=== PATIENT | male | born 1980 | race Caucasian/White ===

== ENCOUNTER 2019-11-22 00:48 | Emergency (ER) | payer OTHER ==
[~2019-11-22] VITALS: Ht 172.7 cm; Wt 91.2 kg
[~2019-11-22 00:48] MED LIST: CYCLOBENZAPRINE10 MG PO; HYDRALAZINE HCL25 MG PO; PERCOCET 5-3251 EACH PO
--- OUTSIDE RECORDS SUMMARY | 2019-11-22 00:50 | XMS ---
PreManage Notification: PAT RIVERA Security Value Engineer Events No recent Security Events currently on file CRITERIA MET - 6 ED Visits in 6 Months - [facility] - 3 Facilities in 90 Days - [facility] - 2 Visits in [address] [place] Student in an Organized Health Care Brian GUAJARDO Education/Training Program PHONE: [phone] ROSARIO ROSS Nurse Practitioner: Adult Health Current PHONE: [phone] Primary Care Primary Care Current PHONE: Unknown MICHAEL ABDI Primary Care Current PHONE: [phone] Care Guidelines exist for the following facilities: [facility] ( 12/03/2017 ) Care History Medical/Surgical 04/29/2016 [facility] MEDICAL - Body mass index 30+ - obesity / 308048133 / Confirmed, Foot pain, left / 261780352 / Confirmed, Anxiety / 79067470 / Confirmed, Acute anxiety / 62802744 / Confirmed, Knee pain, left / 10645969 / Confirmed, Low back pain with radiation / 056609809 / Confirmed, Medication withdrawal / 907530705 / Confirmed, Left arm pain / 254305088 / Confirmed, PTSD (post-traumatic stress disorder) / 14346754 / Confirmed. SURGICAL - Bilateral coblation tonsillectomy (4083757731), Tonsillectomy (374141069). E.D. VISIT COUNT (12 MO.) [address] [place] TOTAL 20 NOTE: Visits indicate total known visits. ED/UCC VISIT TRACKING (12 MO.) 11/22/2019 00:48 ADDIE [place]ias TYPE: Emergency COMPLAINT: - SOB 10/27/2019 12:25 [facility] [place] TYPE: Emergency DIAGNOSES: - Anxiety disorder, unspecified - Anxiety 10/06/2019 09:23 [facility] [place] TYPE: Emergency DIAGNOSES: - Chest Pain - Dizziness - ams - Adverse effect of unspecified drugs, medicaments and biologic 09/30/2019 12:10 [facility] TYPE: Urgent Care DIAGNOSES: - Panic disorder [episodic paroxysmal anxiety] - Anxiety 09/09/2019 13:09 [facility]. TYPE: Emergency DIAGNOSES: - complaining of - panic attack - panic disorder - anxiety 09/01/2019 12:36 [facility]. 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 - Encounter for other general examination - Pain in right hand 05/23/2019 22:59 [facility] [place] TYPE: Emergency DIAGNOSES: - Hand Injury - Right hand pain - Displaced fracture of neck of fifth metacarpal bone, right alberts 05/09/2019 18:56 [facility] [place] TYPE: Emergency 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: - 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 - Anxiety disorder, unspecified - Anxiety 05/08/2019 13:55 [facility] [place] TYPE: Emergency DIAGNOSES: - Finger Pain - Contusion of unspecified finger without damage to nail, initi - rt hand injury 05/07/2019 14:11 [facility] [place] TYPE: Emergency DIAGNOSES: - Shoulder Pain - Pain in left shoulder - shoulder inj 04/25/2019 09:38 [facility]: Emergency DIAGNOSES: - Arm pain - Strain of unspecified muscle, fascia and tendon at shoulder a 04/08/2019 23:29 [facility] TYPE: Emergency DIAGNOSES: - Anxiety disorder, unspecified - Major depressive disorder, single episode, unspecified - Mental Health Evaluation - Suicidal Thoughts - Anxiety - MIXING MACHINE TENDER 04/08/2019 15:01 [facility] TYPE: Emergency DIAGNOSES: - Right eye irritation - Eye Problem - Tinnitus - Dizziness 03/21/2019 08:45 [facility] TYPE: Emergency DIAGNOSES: - Other stimulant use, unsp with intoxication, unspecified - Overdose (Intentional) 03/17/2019 14:00 [facility] Urgent Care [place] TYPE: Urgent Care DIAGNOSES: - Diarrhea, unspecified - Helminthiasis, unspecified - Abdominal Pain 03/01/2019 19:35 [facility] [place] TYPE: Emergency DIAGNOSES: - MIXING MACHINE TENDER - Encounter for other general examination - Medical Problem (Minor) 02/25/2019 06:36 [facility] [place] TYPE: Emergency DIAGNOSES: - Major depressive disorder, single episode, unspecified - Self Mutilation - Other problems related to lifestyle - MIXING MACHINE TENDER 02/22/2019 13:45 [facility] [place] TYPE: Emergency DIAGNOSES: - Pain in right knee - knee pain - Effusion, right knee - Sprain of lateral collateral ligament of right knee, initial Plus 2 More Visits INPATIENT VISIT TRACKING (12 MO.) No inpatient visits to display in this time frame [id number]
--- NOTE | 2019-11-22 11:58 | EKG ---
[facility] [address] [facility] [place], [place] [address] Signed Normal sinus rhythm Normal ECG No previous ECGs available Confirmed by MICHOACANO PEREZ DO ([id number]) on 11/22/2019 11:58:17 AM Electronically Signed By: MICHOACANO PEREZ DO 11/22/19 1158 PATIENT NAME: PAT RIVERA JALIL Electrocardiogram DATE OF : 80 PHYSICIAN: MICHOACANO PEREZ DO REPORT #: [id number] REPORT IS CONFIDENTIAL AND NOT TO BE RELEASED WITHOUT AUTHORIZATION
== END 2019-11-22 02:30 | disposition home or self-care (01) ==
LOC: ED 00:48
DX: F15.10 Other stimulant abuse, uncomplicated (principal); R00.2 Palpitations; Z87.891 Personal history of nicotine dependence; Z88.0 Allergy status to penicillin
CPT/HCPCS: 93005; 93010; 99285-25

== ENCOUNTER 2019-12-14 17:11 | Emergency (ER) | payer OTHER ==
[~2019-12-14] VITALS: Ht 172.7 cm; Wt 91.2 kg
--- OUTSIDE RECORDS SUMMARY | 2019-12-14 17:14 | XMS ---
PreManage Notification: PAT RIVERA Security Tractor Expert Events No recent Security Events currently on file CRITERIA MET - 6 ED Visits in 6 Months - [facility] - 2 Visits in [address] [place] Student in an Organized Health Care Current GUAJARDO Education/Training Program PHONE: [phone] ROSARIO ROSS Nurse Practitioner: Adult Health Current PHONE: [phone] Care Guidelines exist for the following facilities: [facility] ( 12/03/2017 ) Care History Medical/Surgical 04/29/2016 [facility] MEDICAL - Body mass index 30+ - obesity / 962004579 / Confirmed, Foot pain, left / 046140872 / Confirmed, Anxiety / 33344975 / Confirmed, Acute anxiety / 78619128 / Confirmed, Knee pain, left / 74417048 / Confirmed, Low back pain with radiation / 474769525 / Confirmed, Medication withdrawal / 531812307 / Confirmed, Left arm pain / 162070767 / Confirmed, PTSD (post-traumatic stress disorder) / 89859071 / Confirmed. SURGICAL - Bilateral coblation tonsillectomy (4471323573), Tonsillectomy (473263904). Genet VISIT COUNT (12 MO.) 2 [facility] 17 [facility] 2 [facility] TOTAL 21 NOTE: Visits indicate total known visits. ED/UCC VISIT TRACKING (12 MO.) 12/14/2019 17:12 [place] TYPE: Emergency COMPLAINT: - MED REFILL 11/22/2019 00:48 [place] TYPE: Emergency COMPLAINT: - SOB DIAGNOSES: - Personal history of nicotine dependence - Palpitations - Other stimulant abuse, uncomplicated - Other stimulant abuse, uncomplicated - Allergy status to penicillin 10/27/2019 12[facility] DIAGNOSES: - Anxiety disorder, unspecified - Anxiety 10/06/2019 09:23 [facility] DIAGNOSES: - Chest Pain - Dizziness - ams - Adverse effect of unspecified drugs, medicaments and biologic 09/30/2019 12:10 [facility] [place] TYPE: Urgent Care DIAGNOSES: - Panic disorder [episodic paroxysmal anxiety] - Anxiety 09/09/2019 13:09 [facility] TYPE: Emergency DIAGNOSES: - complaining of - panic attack - panic disorder - anxiety 09/01/2019 12:36 [facility]. 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 - Encounter for other general examination - Pain in right hand 05/23/2019 22:59 [facility] [place] [facility]: Emergency DIAGNOSES: - Hand Injury - Right hand pain - Displaced fracture of neck of fifth metacarpal bone, right alberts 05/09/2019 18:56 [facility] [place] TYPE: Emergency 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 [place] TYPE: Emergency DIAGNOSES: - Shoulder Pain - Pain in left shoulder - shoulder inj 04/25/2019 09:38 [facility] [place] [facility]: Emergency DIAGNOSES: - Arm pain - Strain of unspecified muscle, fascia and tendon at shoulder a 04/08/2019 23:29 [facility] TYPE: Emergency DIAGNOSES: - Anxiety disorder, unspecified - Major depressive disorder, single episode, unspecified - Mental Health Evaluation - Suicidal Thoughts - Anxiety - ENGINEERING LECTURER 04/08/2019 15:01 [facility] Pat [place] TYPE: Emergency DIAGNOSES: - Right eye irritation - Eye Problem - Tinnitus - Dizziness 03/21/2019 08:45 [facility] [place] TYPE: Emergency DIAGNOSES: - Other stimulant use, unspecified with intoxication, unspecifi - Overdose (Intentional) 03/17/2019 14:00 [facility] [place] TYPE: Urgent Care DIAGNOSES: - Diarrhea, unspecified - Helminthiasis, unspecified - Abdominal Pain 03/01/2019 19:35 [facility] [place] TYPE: Emergency DIAGNOSES: - ENGINEERING LECTURER - Encounter for other general examination - Medical Problem (Minor) 02/25/2019 06:36 [facility] [place] TYPE: Emergency DIAGNOSES: - Major depressive disorder, single episode, unspecified - Self Mutilation - Other problems related to lifestyle - ENGINEERING LECTURER Plus 3 More Visits INPATIENT VISIT TRACKING (12 MO.) No inpatient visits to display in this time frame [id number]
[2019-12-14] MEDS ORDERED: SUBOXONE 4 MG-1 EACH SL (17:27)
[2019-12-14] MEDS ORDERED: LORAZEPAM1 MG PO (17:27)
== END 2019-12-14 17:41 | disposition home or self-care (01) ==
LOC: ED 17:11
DX: Z76.5 Malingerer [conscious simulation] (principal); Z87.891 Personal history of nicotine dependence; Z88.0 Allergy status to penicillin; Z88.5 Allergy status to narcotic agent; Z88.8 Allergy status to other drugs, medicaments and biological substances; Z79.899 Other long term (current) drug therapy
CPT/HCPCS: 99282

== ENCOUNTER 2020-09-18 21:00 | Emergency (ER) | payer OTHER ==
[~2020-09-18] VITALS: Ht 172.7 cm; Wt 86.2 kg
[~2020-09-18 21:00] MED LIST changes: +LORAZEPAM1 MG PO; +SUBOXONE 4 MG-1 EACH SL
--- OUTSIDE RECORDS SUMMARY | 2020-09-18 21:04 | XMS ---
PreManage Notification: PAT RIVERA Security Surveyor Helper Events No recent Security Events currently on file CRITERIA MET - 6 ED Visits in 6 Months - [facility] [address] [place] Student in an Organized Health Care Current GUAJARDO Education/Training Program PHONE: [phone] EVAN MONREAL Nurse Practitioner: Family Current PHONE: [phone] Care Guidelines exist for the following facilities: [facility] ( 12/03/2017 ) Care History Medical/Surgical 04/29/2016 [facility] MEDICAL - Body mass index 30+ - obesity / 965364579 / Confirmed, Foot pain, left / 340763235 / Confirmed, Anxiety / 94385270 / Confirmed, Acute anxiety / 51157136 / Confirmed, Knee pain, left / 54510281 / Confirmed, Low back pain with radiation / 204602303 / Confirmed, Medication withdrawal / 704938806 / Confirmed, Left arm pain / 019591559 / Confirmed, PTSD (post-traumatic stress disorder) / 41310926 / Confirmed. SURGICAL - Bilateral coblation tonsillectomy (6318066625), Tonsillectomy (345748023). EDana VISIT COUNT (12 MO.) [address] [place] [address] Pat ADDIE [place] TOTAL 15 NOTE: Visits indicate total known visits. ED/UCC VISIT TRACKING (12 MO.) 09/18/2020 21:01 [place] TYPE: Emergency COMPLAINT: - LOC, NECKPAIN UP THRU JAW, ARM PAIN 08/07/2020 12:13 [facility] [place] TYPE: Emergency DIAGNOSES: - Encounter for issue of repeat prescription - Medical Problem (Minor) - Malingerer [conscious simulation] - anxiety 07/24/2020 08:46 [facility] [place] TYPE: Emergency DIAGNOSES: - Chest Pain - Shoulder Pain - Nausea - Chest pain, unspecified - Sore Throat 07/21/2020 20:10 [facility] [place] TYPE: Emergency DIAGNOSES: - Anxiety disorder, unspecified - Opioid dependence with withdrawal - Medication refill - Other psychoactive substance abuse, uncomplicated 07/12/2020 11:14 [facility] [place] TYPE: Emergency DIAGNOSES: - Generalized anxiety disorder - anxiety, CP, lightheaded - Acute stress reaction 05/17/2020 13:56 [facility] [place] TYPE: Emergency DIAGNOSES: - Sedative, hypnotic or anxiolytic dependence with withdrawal, uncomplicated - med withdrawal - Suicidal Thoughts - Medical Problem (Minor) 01/24/2020 12:03 [facility] [place] TYPE: Emergency DIAGNOSES: - poss low potassium - Low Potassium - Other somatoform disorders 01/13/2020 20:41 [facility] [place] TYPE: Emergency DIAGNOSES: - Chest Pain - Anxiety disorder, unspecified 01/07/2020 21:34 [facility] [place] TYPE: Emergency DIAGNOSES: - Medication Refill - needs detox medication - Sedative, hypnotic or anxiolytic dependence, uncomplicated 12/30/2019 02:55 [facility] [place] TYPE: Emergency DIAGNOSES: - Anxiety disorder, unspecified - anxiety 12/14/2019 21:15 [facility] [place] TYPE: Emergency DIAGNOSES: - Medication Refill - Encounter for issue of repeat prescription - SEARCH 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 med refill 12/14/2019 17:12 ADDIE Tobias TYPE: Emergency COMPLAINT: - MED REFILL DIAGNOSES: - Personal history of nicotine dependence - Allergy status to penicillin - Malingerer [conscious simulation] - Allergy status to narcotic agent - Allergy status to other drugs, medicaments and biological substances - 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 11/22/2019 00:48 ADDIE [place] TYPE: Emergency COMPLAINT: - SOB DIAGNOSES: - Personal history of nicotine dependence - Palpitations - Other stimulant abuse, uncomplicated - Other stimulant abuse, uncomplicated - Allergy status to penicillin 10/27/2019 12:25 [facility] DIAGNOSES: - Anxiety disorder, unspecified - Anxiety 10/06/2019 09:23 [facility] DIAGNOSES: - Chest Pain - Dizziness - ams - Adverse effect of unspecified drugs, medicaments and biological substances, initial encounter INPATIENT VISIT TRACKING (12 MO.) No inpatient visits to display in this time frame [id number]
[2020-09-18] MEDS ORDERED: ATIVAN0.5 MG PO (21:19)
--- NOTE | 2020-09-19 07:38 | EKG ---
[facility] [address] [facility] [place], [place] [address] Signed Normal sinus rhythm with sinus arrhythmia Normal ECG When compared with ECG of 22-NOV-2019 01:09, T wave amplitude has decreased in Lateral leads Confirmed by MARILYNN STEVENS MD ([id number]) on 09/19/2020 7:38:02 AM Electronically Signed By: MARILYNN STEVENS MD 09/19/20 0738 PATIENT NAME: PAT RIVERA Electrocardiogram DATE OF : 80 PHYSICIAN: MARILYNN STEVENS MD REPORT #: [id number] REPORT IS CONFIDENTIAL AND NOT TO BE RELEASED WITHOUT AUTHORIZATION
== END 2020-09-18 21:55 | disposition left against medical advice (07) ==
LOC: ED 21:00
DX: R68.84 Jaw pain (principal); M54.2 Cervicalgia; Z88.8 Allergy status to other drugs, medicaments and biological substances; Z88.5 Allergy status to narcotic agent; Z88.0 Allergy status to penicillin; Z79.52 Long term (current) use of systemic steroids; Z79.899 Other long term (current) drug therapy
CPT/HCPCS: 80053; 84484; 85025; 93005; 93010; 99284-25

== ENCOUNTER 2021-08-27 21:50 | Emergency (ER) | payer OTHER ==
[~2021-08-27] VITALS: Ht 172.7 cm; Wt 200.0 kg
[~2021-08-27 21:50] MED LIST changes: +ATIVAN0.5 MG PO
--- OUTSIDE RECORDS SUMMARY | 2021-08-27 21:52 | XMS ---
PreManage Notification: PAT RIVERA Security Human Resources Associate Events 2 event(s) in the past 18 months Most recent security events: Elopement at [facility] 07/05/2021 15:26 - Other Details: PATIENT LWTINO Elopement at [facility] 09/18/2020 21:01 - Other Details: PATIENT LEFT AMA CRITERIA MET - [facility] - 2 Visits in 30 Days - [facility] - 3 Facilities in 90 Days - 6 ED Visits in 6 Months - [facility] C[facility] PROVIDERS Angela Kuhn Home Health Care Worker 07/26/2021-Current PHONE: [phone] [facility]: Health Service 07/26/2021-[facility] NETWORK [facility] PHONE: [phone] [place] Student in an Organized Health Care Current GUAJARDO Education/Training Program PHONE: [phone] NAHUM LUDWIG Counselor: Mental Health Current PHONE: [phone] Care Guidelines exist for the following facilities: [facility] ( 12/03/2017 ) Care History Medical/Surgical 04/29/2016 [facility] MEDICAL - Body mass index 30+ - obesity / 183966140 / Confirmed, Foot pain, left / 102700330 / Confirmed, Anxiety / 17877634 / Confirmed, Acute anxiety / 87038583 / Confirmed, Knee pain, left / 08423444 / Confirmed, Low back pain with radiation / 075517304 / Confirmed, Medication withdrawal / 436697722 / Confirmed, Left arm pain / 056759930 / Confirmed, PTSD (post-traumatic stress disorder) / 81787577 / Confirmed. SURGICAL - Bilateral coblation tonsillectomy (2274213600), Tonsillectomy (315170452). E.D. VISIT COUNT (12 MO.) 5 [facility] 2 [facility] 10 [facility] 1 [facility] 3 [facility] [address] [place] TOTAL 24 NOTE: Visits indicate total known visits. ED/UCC VISIT TRACKING (12 MO.) 08/27/2021 21:50 ADDIE [place] TYPE: Emergency COMPLAINT: - DIFF BREATHING 08/07/2021 12:06 [facility] [place] TYPE: Emergency DIAGNOSES: - Medication Administration Only - Opioid dependence, uncomplicated - medical condition 07/30/2021 16:28 [facility] [place] TYPE: Emergency DIAGNOSES: - Palpitations - Abdominal Pain - Acute gastritis without bleeding 07/29/2021 17:25 [place] TYPE: Emergency COMPLAINT: - SEVERE ANXIETY,SHAKING,NAUSEA DIAGNOSES: - Sedative, hypnotic or anxiolytic dependence with withdrawal, unspecified 07/26/2021 15:23 [place] TYPE: Emergency COMPLAINT: - ALLERGIC REACTION TO MEDICATION DIAGNOSES: - Other specified anxiety disorders - Other psychoactive substance dependence with withdrawal, unspecified 07/25/2021 16:10 [facility] [place] TYPE: Emergency DIAGNOSES: - Malingerer [conscious simulation] - Patient's noncompliance with other medical treatment and regimen - Sedative, hypnotic or anxiolytic dependence, uncomplicated - medication reaction - Encounter for screening, unspecified - Personal history of other mental and behavioral disorders - Medical Clearance - Opioid dependence, uncomplicated 07/23/2021 19:35 [facility] TYPE: Emergency DIAGNOSES: - Psychotic Symptoms - Paranoid - Anxiety disorder, unspecified - Elevated blood-pressure reading, without diagnosis of hypertension 07/21/2021 19:16 [facility] TYPE: Emergency DIAGNOSES: - Medical Problem (Re-evaluation) - Opioid dependence, uncomplicated - Sedative, hypnotic or anxiolytic dependence with withdrawal, uncomplicated - Delusional disorders - Anxiety disorder, unspecified - Shortness of Breath 07/21/2021 15:10 [facility] TYPE: Emergency DIAGNOSES: - Heart Palpitations - Other chest pain - Hoarse - Adverse effect of unspecified drugs, medicaments and biological substances, initial encounter - Shortness of Breath 07/19/2021 08:13 [facility] [place] TYPE: Emergency DIAGNOSES: - Anxiety disorder, unspecified - Encounter for issue of repeat prescription - Sedative, hypnotic or anxiolytic dependence, uncomplicated - Anxiety; Medication refill - Medication Refill - Anxiety 07[facility]11[facility]2021 [facility] DIAGNOSES: - Medication Administration Only - Opioid dependence with withdrawal 07/10/2021 13:41 [facility] DIAGNOSES: - Palpitations - Irregular Heart Beat - Medication Refill - Hyperkalemia 07[facility]05/2021 [facility] DIAGNOSES: - panic attack - Anxiety disorder, unspecified - Anxiety 07/05/2021 15:26 ADDIE Tobias TYPE: Emergency COMPLAINT: - ANXIETY ATTACK 07/01/2021 17:12 [facility] [place] TYPE: Emergency DIAGNOSES: - Anxiety - Opioid dependence with withdrawal - Med Refill/Anxiety - Medication Refill 07/01/2021 12:24 [facility] Ven[place] TYPE: Emergency DIAGNOSES: - Med Refill/Anxiety - Malingerer [conscious simulation] - Withdrawal (Drug) - Anxiety - Med refill - Anxiety disorder, unspecified 06/23/2021 13:52 [facility] [place] TYPE: Emergency DIAGNOSES: - Procedure and treatment not carried out due to patient leaving prior to being seen by health care provider - Allergic Reaction 06/14/2021 16:12 [facility] Ven[place] TYPE: Emergency DIAGNOSES: - Chest Pain - Heart Palpitations - Shortness of Breath - heart palpitations, sob, chesat pain, jittery - Anxiety disorder, unspecified 05/05/2021 17:12 [facility] [place] TYPE: Emergency DIAGNOSES: - needs a dose of medication - Medication Refill - Opioid dependence, uncomplicated 03/08/2021 08:59 [facility] [place] TYPE: Emergency COMPLAINT: - MEDICAL SCREENING Plus 4 More Visits INPATIENT VISIT TRACKING (12 MO.) No inpatient visits to display in this time frame [id number]
[2021-08-27] MEDS ORDERED: VALIUM5 MG PO (22:05)
[2021-08-27] MEDS ORDERED: BUPRENORPHINE HC2 MG SL (22:06)
--- NOTE | 2021-08-29 17:56 | EKG ---
[facility] [address] [facility] [place] [address] Signed Normal sinus rhythm Normal ECG When compared with ECG of 18-SEP-2020 21:09, No significant change was found Confirmed by MICHOACANO PEREZ DO ([id number]) on 08/29/2021 5:56:10 PM Electronically Signed By: MICHOACANO PEREZ DO 08/29/21 1756 PATIENT NAME: MIGUELPAT Electrocardiogram DATE OF : 80 PHYSICIAN: MICHOACANO PEREZ DO REPORT #: [id number] REPORT IS CONFIDENTIAL AND NOT TO BE RELEASED WITHOUT AUTHORIZATION
== END 2021-08-28 01:00 | disposition home or self-care (01) ==
LOC: ED 21:50
DX: R06.02 Shortness of breath (principal); R07.9 Chest pain, unspecified; Z77.098 Contact with and (suspected) exposure to other hazardous, chiefly nonmedicinal, chemicals; Z88.8 Allergy status to other drugs, medicaments and biological substances; Z88.5 Allergy status to narcotic agent; Z88.0 Allergy status to penicillin; Z79.899 Other long term (current) drug therapy
CPT/HCPCS: 71045; 82375; 84484; 93005; 93010; 99285-25